=== PATIENT | male | born 1975 | race Caucasian/White ===

== ENCOUNTER 2024-03-24 11:35 | Emergency (ER) | payer OTHER, SELFPAY ==
[2024-03-24] VITALS (7 sets, daily range): BP systolic 108–128; BP diastolic 62–70; PULSE 51; BMI 24.6
[2024-03-24 11:52] LABS: % Basophils 0.6 % (0-2); % Eosinophils 1.6 % (0-6); % Immature Granulocytes 0.1 % (0-0.5); % Lymphocytes 27.4 % (20.5-51.1); % Monocytes 10.2 % (1.7-9.3); % Neutrophils 60.1 % (42.2-75.2); Absolute Eosinophils 0.1 10^3/uL (0-0.7); Absolute Lymphocytes 1.8 10^3/uL (1.2-3.4); Absolute Monocytes 0.7 10^3/uL (0.1-0.6); Hematocrit 43.6 % (39.0-52.0); Hemoglobin 14.7 g/dL (13.0-18.0); Mean Corp Hgb Conc. 33.7 g/dL (33.0-37.0); Mean Corpuscular Hgb 30.2 pg (27.0-31.0); Mean Corpuscular Volume 89.7 fL (80.0-94.0); Mean Platelet Volume 9.3 fL (7.4-10.4); Nucleated Red Blood Cells % 0 % (-); Platelet Count 224 10^3/uL (130-400); Red Blood Cell Count 4.86 10^6/uL (4.70-6.10); Red Cell Dist. Width 12.3 % (11.5-14.5); White Blood Cell Count 6.7 10^3/uL (4.8-10.8)
[2024-03-24 12:33] LABS: ALT (SGPT) 22 U/L (0-50); AST (SGOT) 24 U/L (17-59); Albumin 4.7 g/dl (3.5-5.0); Alkaline Phosphatase 40 U/L (38-126); Blood Urea Nitrogen 25 mg/dl (9-20); Calcium 9.6 mg/dl (8.4-10.2); Carbon Dioxide 30 mmol/L (22-30); Chloride 101 mmol/L (98-107); Glucose 89 mg/dl (70-99); Potassium 4.4 mmol/L (3.5-5.1); Sodium 138 mmol/L (135-145); Total Bilirubin 0.4 mg/dl (0.2-1.3); Total Protein 7.5 g/dl (6.3-8.2); eGFR > 60.00
[2024-03-24 15:26] LABS: COVID-19 Antigen Negative (Negative)
--- NOTE | 2024-03-24 16:24 | ED.GENMED ---
History of Present Illness
General
Chief Complaint: Headache
Source: patient and spouse
Exam Limitations: none
Time Seen by Provider: 03/24/24 14:10
Nursing documentation reviewed up to this point in time: agreed with
History of Present Illness
History of Present Illness:
Patient presents to ED for evaluation secondary to intermittent posterior headache associated with dizziness over the past 5 days. Denies blurred vision. Denies loss of sensation or weakness. Denies difficulty with speech or swallowing. Patient
states that sometimes he has felt unsteady when ambulating due to extreme dizziness. Today, when he lay down to do sit ups, he felt extreme dizziness, associated with nausea and diaphoresis. Denies previous history of similar symptoms. Patient
otherwise is healthy and does not take any medications daily. Denies recent illness, although his spouse recently had tested positive for COVID. Denies recent travel.
Review of Systems
Review of Systems
Allergies reviewed?: Yes
All Other Systems: ROS reviewed and negative except as documented in HPI and ROS
Constitutional: Reports no symptoms; Denies fever or chills
Respiratory: Reports no symptoms; Denies cough
Cardiac: Reports no symptoms; Denies chest pain or syncope
ABD/GI: Reports nausea; Denies abdominal pain or vomiting
: Reports no symptoms
Musculoskeletal: Reports no symptoms
Skin: Reports no symptoms
Neurological: Reports dizzy
Phy Exam
Physical Exam
Physical Exam:
Physical Exam
General: no apparent distress, not acutely ill. afebrile
Head: nc/at. eomi. horizontal nystagmus noted.
Neck: supple. no meningeal signs.
Heart: s1/s2 regular rate and rhythm, no murmur. equal radial pulses.
Lungs: no acute respiratory distress. clear bilaterally
Abdomen: normal bowel sounds. non tender
Neuro: alert and oriented. no focal neurological deficits
Skin: no rash
Psychiatric: well kept. interactive and cooperative
Extremities: no edema. no calf tenderness.
Course
Orders/Labs/Results
Orders:
Orders
03/24/24 11:46
CMP [Comprehensive Metabolic Panel] Urgent
Complete Blood Count/With Diff Urgent
03/24/24 14:28
CT Head W/o Iv Contrast Urgent
Comment:
Reason For Exam: posterior headache with dizziness
Orthostatic VS- Treatment ONCE
Physical Therapy Consult [Pt Eval And Treat] Urgent
Treatment: vertigo
Activity Level: As Tolerated
03/24/24 14:58
COVID-19 Antigen Urgent
Source: Nasal Swab
Abnormal Lab Results
03/24/24
11:46
Absolute Monos (auto) 0.7 H 10^3/uL
(0.1-0.6)
Monocytes % 10.2 H %
(1.7-9.3)
BUN 25 H mg/dl
(9-20)
03/24/24 11:46
03/24/24 11:46
Vital Signs
Initial and Last Documented VS:
Initial Vital Signs
Temp Pulse Resp BP Pulse Ox
98.4 F 56 18 111/62 98
03/24/24 11:39 03/24/24 11:39 03/24/24 11:39 03/24/24 11:39 03/24/24 11:39
Last Documented Vital Signs
Temp Pulse Resp BP Pulse Ox
98.4 F 56 18 123/68 98
03/24/24 11:39 03/24/24 11:39 03/24/24 11:39 03/24/24 15:31 03/24/24 11:39
MDM/Problems Addressed
MDM/Problems Addressed:
Patient with an unremarkable workup in ED, including CT head and blood work. Patient evaluated by physical therapy at bedside, who was able to elicit similar discomfort with positional changes. Does recommend further evaluation as an outpatient.
As such, patient will be given prescription for outpatient physical therapy evaluation, along with meclizine, to be used as needed. Patient also advised to follow-up with PCP, with consideration to obtain MRI brain as an outpatient, if symptoms
persist. Patient and spouse expressed understanding at time of discharge.
*Critical Care Note
Total Time (30-74mins, 75-104mins- exclusive of procedures): Not Applicable
ED Attending Note
-
Portions of this chart may have been created with voice recognition software.� Occasional wrong word or��sound alike� substitutions may have occurred due to the inherent limitations of voice recognition software.
Discharge Plan
Departure
Patient Disposition: Home (Routine Discharge)
Date of Disposition: 03/24/24
Time of Disposition: 16:39
Patient with high blood pressure during this ER visit?: Yes
Condition: Good
Discharge Problem:
Dizziness
Instructions: Dizziness in adults - ED discharge instructions
Prescriptions:
New
meclizine 25 mg tablet
25 mg PO BID PRN (Reason: dizziness) Qty: 20 0RF
Referrals:
Gali Rivera CRNP [Family Provider] -
Activity Restrictions/Additional Instructions:
As discussed, please follow-up with your primary care physician as well as outpatient physical therapy for further evaluation and treatment, including potential MRI brain as an outpatient, if symptoms persist. Your prescription has been sent
electronically to [facility] pharmacy in [place].
Interventions
Interventions:
*Risk Screen - Suicide Last Done: 03/24/24 11:39
*General Assessment Last Done: 03/24/24 11:39
*Neglect/Abuse Screening Last Done: 03/24/24 14:12
ED- Fall Risk Assessment Last Done: 03/24/24 17:00
*ED COVID-19 Vaccine History Last Done: 03/24/24 11:39
*Nursing Disposition Last Done: 03/24/24 17:00
ED- Neurological Assessment Last Done: 03/24/24 14:18
Discharge Date and Time
Discharge Date/Time: 03/24/24 17:02
Print Language: POLISH
== END 2024-03-24 17:02 | disposition home or self-care (01) ==
LOC: EMR 11:35
PROVIDERS: Emergency Medicine; EMERGENCY PHYSICIAN Emergency Medicine; FAMILY PHYSICIAN Nurse Practitioner Family
DX: R42 Dizziness and giddiness (principal); R51.9 Headache, unspecified; R11.0 Nausea; R61 Generalized hyperhidrosis; Z11.52 Encounter for screening for COVID-19; Z20.822 Contact with and (suspected) exposure to COVID-19; R03.0 Elevated blood-pressure reading, without diagnosis of hypertension; Z88.5 Allergy status to narcotic agent; Z88.0 Allergy status to penicillin
CPT/HCPCS: 99284; 70450; 80053; 85025; 87811